=== PATIENT | male | born 1960 | race Caucasian/White ===

== ENCOUNTER 2021-03-16 14:49 | Outpatient (CLI) | payer OTHER, SELFPAY ==
--- NOTE | ~2021-03-16 | US_ITS ---
US scrotum doppler INDICATION: Right testicular mass and pain TECHNIQUE: Testicular sonogram utilizing grayscale and color Doppler FINDINGS: The testes are normal in size and appearance. No focal lesions are seen. The right testes measures 3.2 x 2.5 x 3 cm centimeters, and the left testis measures 3.3 x 2.1 x 2.6 cm cm. There is n ormal vascular flow to both testes. The right and left epididymides appear normal. Small bilateral hydroceles. IMPRESSION: 1. Small bilateral hydroceles. Reviewed, dictated and finalized at location [facility]
== END 2021-03-16 14:50 | disposition home or self-care (01) ==
LOC: CHSIMG 14:52
PROVIDERS: PCP Internal Medicine; Visit Provider Internal Medicine
DX: N50.811 Right testicular pain (principal); N50.9 Disorder of male genital organs, unspecified
CPT/HCPCS: 76870; 93976

== ENCOUNTER 2021-09-14 12:46 | Outpatient (CLI) | payer OTHER, SELFPAY ==
--- NOTE | 2021-09-14 | ECHO_ITS ---
Patient Info Name: Renato Hollingsworth Age: 60 years : 1960 Gender: Male Ht: 69 in Wt: 210 lbs BSA: 2.18 m2 HR: 65 bpm BP: 135 / 90 mmHg Technical Quality: Fair Exam Date: 09/14/2021 1:09 PM Exam Location: [facility] Patient Status: Outpatient Admit Date: 09/14/2021 Staff Ordering Physician: Stone Wright MD Lapidarist: Emily Ambrosio RDCS Attending Provider: Stone Wright MD Exam Type: CA echo doppler color flow Study Info Indications I10 - Essential (primary) hypertension Complete two-dimensional, color flow and Doppler transthoracic echocardiogram is performed. Summary 1. Complete two-dimensional, color flow and Doppler transthoracic echocardiogram is performed. 2. Left ventricular chamber dimension is normal. 3. Left ventricular systolic function is normal, estimated at 65-70%. 4. The left ventricular diastolic function is grade II diastolic dysfunction. 5. E/e' 6 is not elevated. 6. There is trace tricuspid valve regurgitation. 7. No pulmonary hypertension, estimated pulmonary arterial systolic pressure is 26 mmHg. Left Ventricle E/e' 6 is not elevated. Left ventricular chamber dimension is normal. Left ventricular systolic function is normal, estimated at 65-70%. The left ventricular diastolic function is grade II diastolic dysfunction. Right Ventricle Right ventricular chamber dimension is normal. Right ventricular systolic function is normal. Left Atria Left atrial chamber dimension is normal. Right Atria Right atrial chamber dimension is normal. Aortic Valve The aortic valve is trileaflet. There is no aortic valve stenosis. There is no aortic valve regurgitation. Pulmonic Valve There is no pulmonic regurgitation. Mitral Valve There is no mitral valve stenosis. There is no mitral valve regurgitation. Tricuspid Valve There is trace tricuspid valve regurgitation. No pulmonary hypertension, estimated pulmonary arterial systolic pressure is 26 mmHg. Pericardium/Pleural There is no pericardial effusion. Inferior Vena Cava Normal inferior vena cava with >50% collapse upon inspiration consistent with normal right atrial pressure, 5 mmHg. Aorta The aortic root size at the sinus of Valsalva is normal. Left Ventricular Outflow Tract Name Value Normal LVOT 2D LVOT Diameter 2.0 cm LVOT Doppler LVOT Peak Gradient 5 mmHg LVOT Mean Gradient 2 mmHg LVOT VTI 21 cm LVOT VTI/AV VTI Ratio 0.9 LVOT Stroke Volume 66 ml LVOT CO 4.0 l/min LVOT CI 1.8 l/min/m2 Pulmonic Valve Name Value Normal RVOT Doppler RVOT Peak Gradient 2 mmHg PV Doppler
== END 2021-09-14 12:47 | disposition home or self-care (01) ==
LOC: ANHCARD 12:49
PROVIDERS: PCP Internal Medicine; Visit Provider Internal Medicine
DX: R42 Dizziness and giddiness (principal); I11.9 Hypertensive heart disease without heart failure
CPT/HCPCS: 93306

== ENCOUNTER 2025-01-08 10:15 | Outpatient (CLI) | payer OTHER, SELFPAY ==
--- NOTE | ~2025-01-08 | XR_ITS ---
EXAMINATION: XR wrist LT min 3V, 01/08/2025 10:15 CDT HISTORY: L WRIST PAIN COMPARISON: No comparisons available. Findings: No acute fracture or malalignment. No significant degenerative changes. Soft tissues unremarkable. Impression: No acute fracture or malalignment. Reviewed, dictated and finalized at location P. Impression: No acute fracture or malalignment.
--- OUTSIDE RECORDS SUMMARY | 2025-01-08 11:49 | XMS_ITS | Clinical Summary ---
Author Organization [email or web address] Address [address] [place] [address] Care Team Providers Care Counter Cutter Name Role Phone Unavailable Primary Care Provider Unavailabl e Encounters Date Type Department Care Team Description 11/21/2024 External Device Data [facility] ABSTRACTION Provider, Abstract 11/20/2024 External Device Data [facility] Provider, Abstract 10/10/2024 External Device Data [facility]STRA[facility] Provider, Abstract from Last 3 Months Social History Tobacco Use Types Packs/Day Years Used Date Smoking Tobacco: Never Assessed Sex and Gender Information Value Date Recorded Sex Assigned at Not on file 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
--- OUTSIDE RECORDS SUMMARY | 2025-01-08 11:49 | XMS_ITS | Clinical Summary ---
Author Organization [place] [id number] [facility] Address [address] [place] [address] Care Team Providers Care Public Relations Assistant Name Role Phone Stone Wright MD Primary Care Provider [phone] Allergies No known active allergies Medications esomeprazole DR (NexIUM) 20 mg capsule Take 20 mg by mouth daily Active HYDROcodone-xochitl taminophen (NORCO) 5-325 mg per tablet TAKE 1-2 TABLET BY MOUTH EVERY 4 HOURS NEEDED FOR PAIN 03/04/2022 Active HYDROcodone-xochitl taminophen (NORCO) 5-325 mg per tablet Take 1-2 tablets by mouth every 4 (four) hours as needed 03/04/2022 Active lisinopriL (PRINIVIL,ZESTR IL) 20 mg tablet Active verapamil SR (CALAN SR) 180 mg CR tablet Take 180 mg by mouth nightly 03/22/2022 Active verapamil SR (CALAN SR) 180 mg CR tablet Take 180 mg by mouth daily 12/12/2021 Active losartan-hydroC HLOROthiazide (HYZAAR) 50-12.5 mg per tablet Take 1 tablet by mouth daily Active Active Problems Problem Noted Date Diagnosed Date Dupuytren's contracture 05/08/2015 Family History Medical History Relation Name Comments Diabetes Brother Family history of diabetes mellitus - (Added by TW Conv) Cancer Father Family history of malignant neoplasm - (Added by TW Conv) Kidney disease Mother Family histor y of kidney disease - (Added by TW Conv) Diabetes Sister Family history of diabetes mellitus - (Added by TW Conv) Relation Name Status Comments Brother Father Mother Sister Social History Tobacco Use Types Packs/Day Years Used Date Smoking Tobacco: Never Tobacco Cessation:Counseling Given: Not Answered Personal Safety Answer Date Recorded Getting School Help Needed Not on file 03/16 Sex and Gender Information Value Date Recorded Sex Assigned at Not on file 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 Gender Identity Not on file Sexual Orientation Not on file Obstetrics History Last Filed Vital Signs Vital Sign Reading Time Taken Comments Blood Pressure 110/64 09/01/2022 8:06 AM CDT Pulse 97 09/01/2022 8:06 AM CDT Temperature 36.6 C (97.8 F) 09/01/2022 8:06 AM CDT Respiratory Rate 20 09/01/2022 8:06 AM CDT Oxygen Saturation 100% 09/01/2022 8:06 AM CDT Inhaled Oxygen Concentration - - Weight 97.5 kg (215 lb) 09/01/2022 8:06 AM CDT Height 175.3 cm (5' 9) 09/01/2022 8:06 AM CDT Body Mass Index 31.75 09/01/2022 8:06 AM CDT Plan of Treatment Health Maintenance Due Date Last Done Comments Colon Cancer Screening-Colonoscopy 1960 Depression Screening 1960 Hepatitis C Screening 1960 Prostate Cancer Screening-PSA 1960 DTaP/Tdap/Td Vaccine (1 - Tdap) 11/30/1971 Hepatitis B Screening 1978 Regular Well Visit/Exam 18-64 1978 Zoster Vaccine (1 of 2) 2010 Influenza Vaccine (#1) 2024 Pneumococcal vaccine <65 Aged Out No longer eligible based on patient's age to complete this topic Insurance LOCAL PLUS LOCAL PLUS LOCAL PLUS Care Teams Public Relations Assistant Relationship Specialty Start Date End Date Stone Wright MD PCP - General 10/17/18
== END 2025-01-08 10:16 | disposition home or self-care (01) ==
PROVIDERS: PCP Internal Medicine; Visit Provider Nurse Practitioner Family
DX: M25.532 Pain in left wrist (principal)
CPT/HCPCS: 73110